=== PATIENT | male | born 1990 | race Caucasian/White ===

== ENCOUNTER 2025-02-02 18:13 | Emergency (ER) | payer OTHER, SELFPAY ==
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
[2025-02-02 18:14] VITALS: BP 134/82; PULSE 107; RESP 18; TEMP 36.6; O2SAT 100
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
[2025-02-02] MEDS: KETOROLAC (*BKC) 60 MG/2 ML VIAL IM (20:34)
[2025-02-02] MEDS: CYCLOBENZAPRINE HCL 10 MG TABLET PO (20:36)
[2025-02-02] MEDS: HYDROcodone/acetaminophen (*CRX) 5-325 MG TABLET 1 TAB PO (20:36)
--- OUTSIDE RECORDS SUMMARY | 2025-02-02 20:46 | XMS_ITS | Encounter Summary ---
Author Organization [facility] Address [address] [place] [id number] Care Team Providers Care Director Of Transportation Name Role Phone Jay Frost MD Primary Care Provider [phone] Encounter Details Date Type Department Care Team (Late st Contact Info) Description 08/08/2022 [employer] Message Enc [facility] Family [facility] [address] [place] [id number] Jay Frost MD [address] [place] [address] [id number] Prescription Social History Tobacco Use Types Packs/Day Years Used Date Smoking Tobacco: Never Smokeless Tobacco: Never Alcohol Use Standard Drinks/Week Comments Yes 1.7 (1 standard drink = 0.6 oz p ure alcohol) AUDIT-C Answer Date Recorded Frequency of Alcohol Consumption Monthly or less 11/03/2019 Average Number of Drinks 1 or 2 019 Frequency of Binge Drinking Never 10/13 PHQ-2 Answer Date Recorded PHQ-2 Score - If the patient scores above 3, please move on to questions 3-9 6 06/05/2022 Sex and Gender Information Value Date Recorded Sex Assigned at Not on file 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
--- OUTSIDE RECORDS SUMMARY | 2025-02-02 20:46 | XMS_ITS | Clinical Summary ---
Author Organization [facility] Address [address] [place] [id number] Care Team Providers Care Engineering Designer Name Role Phone Jay Frost MD Primary Care Provider [phone] Allergies No known active allergies Medications Loratadine 10 MG Cap Take 1 tablet by mouth daily as needed. 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 Gender Identity Not on file Sexual Orientation Not on file Last Filed Vital Signs Vital Sign Reading Time Taken Comments Blood Pressure 104/70 06/05/2022 10:51 AM CDT Pulse 79 06/05/2022 10:51 AM CDT Temperature 36.9 C (98.4 F) 06/05/2022 10:51 AM CDT Respiratory Rate 16 06/05/2022 10:51 AM CDT Oxygen Saturation 98% 06/05/2022 10:51 AM CDT Inhaled Oxygen Concentration - - Weight 82.8 kg (182 lb 9.6 oz) 06/05/2022 10:51 AM CDT Height 172.7 cm (5' 8 ) 06/05/2022 10:51 AM CDT Body Mass Index 27.76 06/05/2022 10:51 AM CDT Plan of Treatment Health Maintenance Due Date Last Done Comments Hepatitis C 2010 Hepatitis B Vaccines (1 of 3 - 19+ 3-dose series) 2011 Annual Physical 06/05/2023 06/05/2022 COVID-19 Vaccine ( - 2023-2 5 season) 2024 03/15/2021, 02/16/2021 Influenza Adult (#1) 2024 DTaP, Tdap and Td Vaccines ( 2 - Td or Tdap) 06/09/2030 06/09/2020 HPV Vaccines Aged Out No longer eligi ble based on patient's age to complete this topic Meningococcal B Vaccine Aged Out No l onger eligible based on patient's age to complete this topic Meningococcal Vaccine Aged Out No yumi raymond eligible based on patient's age to complete this topic Pneumococcal Vaccine: Pediatrics (0 to 5 Years) and At-Risk Patients (6 to 64 Years) Aged Out No longer eligible b ased on patient's age to complete this topic RSV Immunizations Under 20 Months Aged Out No longer eligible b ased on patient's age to complete this topic Insurance [facility] Member Subscriber Plan / Payer (Ef fective 2019-Present) Name:Maria Ines Hein Relation to Subscriber:Self Name:Maria Ines Hein Payer ID:[id number] (NAIC) Type:Not on file Address: [facility] [id number] [place] [phone] Care Teams Engineering Designer Relationship Specialty Start Date End Date Jay Frost MD [address] [place] [id number] PCP - General INTERNAL MEDICINE 11/03/19
[2025-02-02 20:50] VITALS: BP 126/80; PULSE 97; RESP 16; O2SAT 100
== END 2025-02-02 20:50 | disposition home or self-care (01) ==
LOC: ANHED 20:44
PROVIDERS: Emergency Provider Emergency Medicine
DX: S52.121A Displaced fracture of head of right radius, initial encounter for closed fracture (principal); S52.122A Displaced fracture of head of left radius, initial encounter for closed fracture; V19.9XXA Pedal cyclist (driver) (passenger) injured in unspecified traffic accident, initial encounter
CPT/HCPCS: 73090; 96372; 99284; A4565; A9270; J1885